=== PATIENT | female | born 1990 | race Hispanic/Latino ===

== ENCOUNTER 2021-10-03 05:35 | Inpatient (IN) | payer MEDICAID, OTHER, SELFPAY ==
[2021-10-02 11:52] LABS: Hemoglobin 12.6 g/dL (12.0-15.5); Mean Corpuscular HGB CONC 34.4 g/dL (32.0-36.0); Mean Corpuscular Hemoglobin 30.8 pg (27.0-33.0); Mean Corpuscular Volume 89.5 fl (81.6-98.3); Mean Platelet Volume 11.4 fl (7.4-10.4); Platelet Count 203 10x3/uL (150-450); RBC Distribution Width 13.7 % (11.5-14.5); Red Blood Cell (RBC) Count 4.09 10x6/uL (3.90-5.03); White Blood Cell (WBC) Count 12.3 10x3/uL (3.5-10.5)
[2021-10-02 12:19] LABS: SARS-CoV-2 NAA Rapid Test DETECTED (NotDetected)
[2021-10-02 12:23] LABS: Hep B Surf Ag Non-Reactive S/CO (NonReactive)
[2021-10-02 12:24] LABS: Syphilis Antibody Nonreactive (Nonreactive); Syphilis Antibody Index 0.04 S/CO (<1.00 Non-Reactive)
[2021-10-02 13:21] LABS: HBSAg Index 0.23 S/CO (0-0.99)
[2021-10-03] MEDS ORDERED: hydrALAZINE 20 MG/ML VIAL SLOW IVP PRN ×2 (05:45→08:58)
[2021-10-03] MEDS ORDERED: Ondansetron PF 4 MG/2 ML Vial IVP PRN ×3 (05:45→09:11)
[2021-10-03] MEDS ORDERED: Bicitra 30 ML UDCUP PO PRN (05:45)
[2021-10-03] MEDS ORDERED: Promethazine HCl 25 MG/ML VIAL IM PRN ×3 (05:45→09:11)
[2021-10-03] MEDS ORDERED: Lactated Ringer's 1,000 ML IV SCH (05:45)
[2021-10-03] MEDS ORDERED: CEFAZOLIN 3 GM, Admixture Fee 1 EACH in Sodium Chloride 0.9% 100 ML IVPB SCH (05:45)
[2021-10-03] MEDS ORDERED: Famotidine/PF 20 mg/2ml Vial SLOW IVP PRN (05:45)
[2021-10-03 06:05] VITALS: BMI 35.2
[2021-10-03] MEDS ORDERED: PHENYLEPHRINE-NS 100 MCG/ML 10 ML SYRINGE ONE (07:43)
[2021-10-03] MEDS ORDERED: Morphine PF 10 MG/10 ML VIAL ONE (07:43)
[2021-10-03] MEDS ORDERED: Ketorolac Tromethamine 30 MG/ML VIAL ONE (07:43)
[2021-10-03] MEDS ORDERED: Ondansetron PF 4 MG/2 ML Vial ONE (07:43)
[2021-10-03] MEDS ORDERED: ePHEDrine Sulfate 50 MG/10 ML VIAL ONE (07:43)
[2021-10-03] MEDS ORDERED: Oxytocin 10 UNITS/ML VIAL ONE (07:43)
[2021-10-03] MEDS ORDERED: Phenylephrine 40 MG/NS 250 ML 250 ML ONE (07:43)
[2021-10-03] MEDS ORDERED: Simethicone Chewable 80 MG TAB PO PRN (08:58)
[2021-10-03] MEDS ORDERED: Meperidine HCl/PF 25 MG/ML VIAL IM PRN (08:58)
[2021-10-03] MEDS ORDERED: NS w/ Oxytocin 30 units 500 ML IV SCH (08:58)
[2021-10-03] MEDS ORDERED: Bisacodyl 10 MG SUPP PR PRN (08:58)
[2021-10-03] MEDS ORDERED: HYDROcodone/Acetaminophen 5/325 mg Tablet PO PRN ×2 (08:58)
[2021-10-03] MEDS ORDERED: Lanolin Ointment 7 GM TUBE TOP PRN (08:58)
[2021-10-03] MEDS ORDERED: Fentanyl 100 MCG/2 ML VIAL SLOW IVP PRN (09:11)
[2021-10-03] MEDS ORDERED: Meperidine HCl/PF 25 MG/ML VIAL SLOW IVP PRN (09:11)
[2021-10-03] MEDS ORDERED: Naloxone HCl 0.4 mg/ml Vial IVP PRN ×2 (09:11)
[2021-10-03] MEDS ORDERED: Ondansetron HCl/PF 4 MG/2 ML Vial IVP PRN (09:11)
[2021-10-03] MEDS ORDERED: Promethazine HCl 25 MG SUPP PR PRN (09:11)
[2021-10-03] MEDS ORDERED: Moisturizing Cream (Eucerin) 113 GM JAR TOP PRN (09:11)
[2021-10-03] MEDS ORDERED: Naloxone HCl 0.4 mg/ml Vial IV PRN (09:11)
[2021-10-03] MEDS ORDERED: diphenhydrAMINE 50 MG/ML VIAL IVP PRN (09:11)
[2021-10-03] MEDS ORDERED: Communication Order-Pharmacy FS SCH (09:15)
[2021-10-03] MEDS: diphenhydrAMINE 25 MG CAP PO PRN ×2 (09:18→21:13)
[2021-10-03] MEDS ORDERED: Ketorolac Tromethamine 30 MG/ML VIAL IVP SCH (14:30)
[2021-10-03] MEDS ORDERED: Ketorolac Tromethamine 30 MG/ML VIAL IVP PRN (14:30)
[2021-10-03] MEDS: Prenatal Vitamin 1 TAB PO SCH (15:37)
[2021-10-03] MEDS: Ferrous Sulfate 325 MG TAB PO SCH (15:37)
[2021-10-03] MEDS: Docusate 100 MG CAP PO SCH ×2 (15:37→21:13)
[2021-10-03] MEDS: Ketorolac Tromethamine 30 MG/ML VIAL IVP SCH ×2 (15:47→21:13)
[2021-10-04] MEDS: Ferrous Sulfate 325 MG TAB PO SCH ×3 (00:33→21:53)
[2021-10-04] MEDS: Ketorolac Tromethamine 30 MG/ML VIAL IVP SCH ×2 (03:24→09:51)
[2021-10-04 05:10] LABS: Mean Corpuscular HGB CONC 33.3 g/dL (32.0-36.0); Mean Corpuscular Hemoglobin 30.7 pg (27.0-33.0); Mean Platelet Volume 11.7 fl (7.4-10.4); Platelet Count 166 10x3/uL (150-450); RBC Distribution Width 13.6 % (11.5-14.5); Red Blood Cell (RBC) Count 3.26 10x6/uL (3.90-5.03)
[2021-10-04] MEDS: Docusate 100 MG CAP PO SCH ×2 (08:28→21:53)
[2021-10-04] MEDS: Prenatal Vitamin 1 TAB PO SCH (08:28)
[2021-10-04] MEDS ORDERED: Boostrix 0.5 ML (Tdap) VIAL IM ONE (08:58)
[2021-10-04] MEDS ORDERED: HYDROcodone/Acetaminophen 5/325 mg Tablet PO PRN (10:12)
[2021-10-04] MEDS: HYDROcodone/Acetaminophen 5/325 mg Tablet PO PRN (18:20)
[2021-10-04] MEDS: Ibuprofen 800 MG TAB PO SCH (21:53)
[2021-10-05] MEDS: HYDROcodone/Acetaminophen 5/325 mg Tablet PO PRN (02:02)
[2021-10-05 04:24] VITALS: TEMP 98.1
[2021-10-05] MEDS: Ibuprofen 800 MG TAB PO SCH (05:26)
[2021-10-05] MEDS: Prenatal Vitamin 1 TAB PO SCH (08:08)
[2021-10-05] MEDS: Docusate 100 MG CAP PO SCH (08:08)
[2021-10-05 08:38] VITALS: BP 113/53
== END 2021-10-05 12:00 | disposition home or self-care (01) | DRG 786 ==
LOC: CSHLD 05:35 → CSHPED 11:15
PROVIDERS: ADMIT Family Medicine; ATTEND Family Medicine
PROC: 10D00Z1 Extraction of Products of Conception, Low, Open Approach (ICD-10-PCS; principal; 2021-10-03)
PROC: 3E0334Z Introduction of Serum, Toxoid and Vaccine into Peripheral Vein, Percutaneous Approach (ICD-10-PCS; 2021-10-03)
PROC: 8E0ZXY6 Isolation (ICD-10-PCS; 2021-10-03)
DX: O34.211 Maternal care for low transverse scar from previous cesarean delivery (principal); U07.1 COVID-19; O98.52 Other viral diseases complicating childbirth; Z3A.39 39 weeks gestation of pregnancy; Z37.0 Single live birth; O26.893 Other specified pregnancy related conditions, third trimester; Z67.11 Type A blood, Rh negative; O99.62 Diseases of the digestive system complicating childbirth; K66.0 Peritoneal adhesions (postprocedural) (postinfection)
CPT/HCPCS: 36415; 85027; 85461; 86780; 86850; 86900; 86901; 87340; 90384; 96372; J0690; J1885; J2274; J2310; J2405; J2590; J3490; S0028; U0002